=== PATIENT | female | born 1995 | race Caucasian/White ===

== ENCOUNTER 2020-10-14 05:32 | Outpatient (RCR) | payer BC ==
[~2020-10-14] VITALS: Ht 172.7 cm; Wt 62.7 kg
[~2020-10-14 05:32] MED LIST: PREN-102 PO
[2020-10-17] MEDS ORDERED: ACHD5005 PO (08:14)
[2020-10-17] MEDS ORDERED: IBUP-1773 PO (08:14)
[2020-10-17] MEDS ORDERED: DOCU-143 PO (08:14)
== END 2020-10-14 11:29 | disposition home or self-care (01) ==
LOC: PREOP 05:32
PROVIDERS: ATTEND Obstetrics & Gynecology
DX: Z01.812 Encounter for preprocedural laboratory examination (principal); N94.6 Dysmenorrhea, unspecified; N94.10 Unspecified dyspareunia; Z20.822 Contact with and (suspected) exposure to COVID-19
CPT/HCPCS: 87635

== ENCOUNTER 2020-10-17 06:14 | Day surgery (SDC) | payer BC ==
[~2020-10-17] VITALS: Ht 172.7 cm; Wt 62.7 kg
[2020-10-17] VITALS (13 sets, daily range): BP systolic 88–134; BP diastolic 57–99
[2020-10-17] MEDS: LACTATED RINGERS 1,000 ML IV PRN ×2 (06:52→08:21)
[2020-10-17] MEDS ORDERED: SEVOFLURANE (ULTANE) 15 ML INHAL SOLN ONE (06:54)
[2020-10-17] MEDS ORDERED: proPOfol 200 MG/20 ML (DIPRIVAN) VIAL IV ONE (06:54)
[2020-10-17] MEDS ORDERED: NEOSTIGMINE 3 MG/3 ML VIAL ONE (06:54)
[2020-10-17] MEDS ORDERED: LIDOCAINE PF 2% 5 ML (XYLOCAINE) VIAL ONE (06:54)
[2020-10-17] MEDS ORDERED: ROCURONIUM 10 MG/ML 5 ML SYRINGE IV ONE (06:54)
[2020-10-17] MEDS ORDERED: GLYCOPYRROLATE 0.2 MG/ML (ROBINUL) 2 ML VIAL ONE (06:54)
[2020-10-17] MEDS ORDERED: ONDANSETRON 4 MG/2 ML (SDV) Z0FRAN ONE (06:54)
[2020-10-17] MEDS ORDERED: MIDAZOLAM 2 MG/2 ML (VERSED) VIAL ONE (06:55)
[2020-10-17] MEDS ORDERED: fentaNYL INJECTION 100 MCG/2 ML AMP ONE (06:55)
[2020-10-17 06:57] LABS: BASOPHILS # (AUTO) 0.1 10^3/uL (0.0-0.1); BASOPHILS % (AUTO) 1 % (0-10); EOSINOPHILS # (AUTO) 0.2 10^3/uL (0.0-0.3); EOSINOPHILS % (AUTO) 2 % (0-10); HEMATOCRIT 42 % (35-52); LYMPHOCYTES # (AUTO) 3.3 10^3/uL (1.0-4.0); LYMPHOCYTES % (AUTO) 41 % (12-44); MEAN CORPUSCULAR HEMOGLOBIN 29 pg (25-34); MEAN CORPUSCULAR HGB CONC 33 g/dL (32-36); MEAN CORPUSCULAR VOLUME 88 fL (80-99); MEAN PLATELET VOLUME 10.6 fL (9.0-12.2); MONOCYTES # (AUTO) 0.7 10^3/uL (0.0-1.0); MONOCYTES % (AUTO) 9 % (0-12); NEUTROPHILS # (AUTO) 3.8 10^3/uL (1.8-7.8); NEUTROPHILS % (AUTO) 47 % (42-75); PLATELET COUNT 219 10^3/uL (130-400)
[2020-10-17] MEDS ORDERED: METHYLENE BLUE 0.5% (PROVAYBLUE) 50 mg/10 ml vial IV ONE (07:09)
[2020-10-17] MEDS ORDERED: BUPIVACAINE 0.25% 30 ML (SENSORCAINE) VIAL ONE (07:11)
[2020-10-17] MEDS ORDERED: ACHD5005 PO (08:14)
[2020-10-17] MEDS ORDERED: DOCU-143 PO (08:14)
[2020-10-17] MEDS ORDERED: IBUP-1773 PO (08:14)
--- NOTE | 2020-10-17 08:14 | Discharge Inst-Women's Service ---
Discharge Inst-Women's Serv Depart Medication/Instructions New, Converted or Re-Newed RX: RX on Chart Problems Reviewed?: Yes Consults/Follow Up Additional Follow Up: Yes Activity Activity: Activity as Tolerated Driving Instructions: No Driving for 1 Week NO SMOKING: NO SMOKING Nothing Inside Vagina: No Douching, No Beltrami, No Tampons Diet Discharge Diet: No Restrictions Symptoms to Report to : Bleeding Excessive, Pain Increased, Fever Over 101 Degrees F, Vaginal Bleeding Increase, Questions/Concerns For Any Problems or Questions: Contact Your Physician Skin/Wound Care Infection Signs and Symptoms: Increased Redness, Foul Odor of Wound, Increased Drainage, Skin Itchy or Has a Rash, Increased Swelling, Temperature Above 101 F Operative Area Clean and Dry: Keep Incision Clean/Dry Stitches/[place]/Dermabond: Dermabond TAY FARR DO Oct 17, 2020 08:14
[2020-10-17] MEDS ORDERED: ONDANSETRON 4 MG/2 ML (SDV) Z0FRAN IVP PRN ×2 (08:15→09:00)
[2020-10-17] MEDS ORDERED: HYDROcodone/APAP 5 MG/325 MG (LORTAB) TAB PO PRN (08:15)
[2020-10-17] MEDS ORDERED: D5 LR IV SOLUTION 1,000 ML IV SCH (08:15)
[2020-10-17] MEDS ORDERED: KETOROLAC 30 MG/ML VIAL IVP ONE (08:15)
[2020-10-17] MEDS ORDERED: morphine INJ 10 MG/ML 1ML (SYR OR VIAL) IVP ONE (09:00)
[2020-10-17] MEDS ORDERED: HYDROmorphone 2 MG/ML VIAL (DILAUDID) IV ONE (09:00)
--- NOTE | 2020-10-17 11:30 | Anesthesia-General Post-Op ---
General Patient Condition Mental Status/LOC: Same as Preop Cardiovascular: Satisfactory Nausea/Vomiting: Absent Respiratory: Satisfactory Pain: Controlled Complications: Absent Post Op Complications Complications None Follow Up Care/Instructions Patient Instructions None needed. Anesthesia/Patient Condition Patient Condition Patient was seen this morning after the procedure and she was doing well, no complaints, stable vital signs, no apparent adverse anesthesia problems. ELISABET ROE DO Oct 17, 2020 11:30
--- NOTE | 2020-10-17 14:43 | OPERATIVE REPORT ---
DATE OF SERVICE: PREOPERATIVE DIAGNOSES: 1. A 25-year-old female with chronic pelvic pain. 2. Dyspareunia. 3. Dysmenorrhea. POSTOPERATIVE DIAGNOSES: 1. A 25-year-old female with chronic pelvic pain. 2. Dyspareunia. 3. Dysmenorrhea. PROCEDURE: Operative laparoscopy with cauterization of endometriosis implants of the pelvic peritoneum as well as chromotubation. SURGEON: Tay Farr DO ANESTHESIA: General LMA. ESTIMATED BLOOD LOSS: Minimal. URINE OUTPUT: 400 mL clear at the end of the procedure. FLUIDS: 1500 mL lactated Ringer's solution. FINDINGS: A grossly normal appearing external female genitalia. Normal appearing cervix, normal appearing bilateral fallopian tubes with spillage of methylene blue dye from both distal ampullary portion of the fallopian tube, normal appearing vesicouterine peritoneum. There are endometriosis implants of the left uterosacral ligament and posterior cul-de-sac. SPECIMEN SENT: None. INDICATIONS FOR PROCEDURE: This 25-year-old female is a patient who had sought care in my office for concerns with pain with intercourse, pain with periods. She had also reported some infertility attempting to get for the past 2 years without any success despite timing ovulation. She reported her cycles are regular. I discussed with the patient performing diagnostic procedure due to the pain she was having. Risks of the procedure were discussed with the patient in detail including risk of bleeding, infection, damage to surrounding structures including, but not limited to bowel, bladder, ureter, kidneys, possible need for reoperation, recovery timeframe, risk from anesthesia and even . After everything was discussed with the patient in detail, consent was obtained in the preoperative area and the patient was taken to the operating room. OPERATIVE REPORT IN DETAIL: Once in the operating room, anesthesia was found to be adequate, placed in dorsal lithotomy position, prepped and draped in normal sterile fashion. Timeout was performed. A Fu catheter was placed using sterile technique. A weighted speculum was inserted in the patient's vagina. Right angle retractor was used to visualize the cervix, which was grasped at 12 o'clock position using a long Allis clamp. I then gently sound the uterine cavity, depth was found to be 8 cm. I placed a [employer] uterine manipulator to a depth of 8 cm and the uterus deploying the balloon. I removed all the instruments from the patient's vagina, performed change of gloves and took my attention to the abdomen where infraumbilically I infiltrated this area using 0.25% Marcaine to make a 5 mm incision with a knife and directed Veress needle through the incision, intraperitoneal placement was confirmed using saline drop test. An opening pressure of 5 mmHg was noted, proceeded to maximum pressure of 15 mmHg using CO2 gas for insufflation. I then removed the Veress needle and introduced a 5 mm blunt laparoscopic trocar. Once this was in place, I am able to confirm intraperitoneal placement using the laparoscope. There was no evidence of damage upon my entry site. A brief scan of the upper abdominal anatomy appears grossly normal. I then had the patient placed in steep Trendelenburg and I am able to visualize all my findings as described above. I need a second trocar in order to cauterize and addressed the endometriosis implants; therefore, a suprapubic trocar was placed in similar fashion. Once this trocar was in place, I used a hook cautery to cauterize and destroy the endometrial tissue that I am able to grossly see. After this was done, there was no active bleeding noted from either of these places. I copiously irrigated the pelvis using normal saline. Again, no active bleeding was noted. I then performed a chromotubation using methylene blue diluted in 1200 mL of normal saline. There was spillage from bilateral fallopian tubes without any resistance. After which, I copiously irrigate the methylene blue out of the pelvis as well. I then had the patient taken out of steep Trendelenburg where I removed the suprapubic trocar under direct visualization of the laparoscope and infraumbilical trocars left in place to release insufflation and to introduce 10 mL of 0.25% Marcaine into the peritoneal cavity for postoperative pain management. I then removed this trocar as well. The skin was reapproximated using Dermabond and the Kronner uterine manipulator and Fu catheter were removed at the end of procedure. The patient tolerated the procedure well and was taken to recovery area in stable condition. Lap and sponge counts were correct at the end of procedure. Instrument counts correct as well. Job ID: [id number] DocumentID: [id number] Dictated Date: 10/17/2020 09:47:59 Document Processing Specialist Date: 10/17/2020 14:43:23 Dictated By: TAY FARR DO
== END 2020-10-17 11:25 | disposition home or self-care (01) ==
LOC: SDC 06:14
PROVIDERS: ATTEND Obstetrics & Gynecology
DX: N94.6 Dysmenorrhea, unspecified (principal); N94.10 Unspecified dyspareunia; G89.29 Other chronic pain; N94.4 Primary dysmenorrhea; N94.12 Deep dyspareunia
CPT/HCPCS: 36415; 84703; 85025; 86850; 86900; 86901; 87081

== ENCOUNTER → 2021-04-20 | Outpatient (CLI) | payer BC ==
[~2021-04-20] MED LIST changes: +ACHD5005 PO; +DOCU-143 PO; +IBUP-1773 PO
--- NOTE | 2021-04-20 15:31 | Diagnostic Imaging Report ---
INDICATION: Encounter for supervision of normal 1st . TECHNIQUE: Multiple real-time grayscale images were obtained over the gravid uterus. COMPARISON: None FINDINGS: There is a single live fetus in a breech presentation. heart rate was recorded at 155 bpm. Placenta is anterior. Amniotic fluid volume is normal. survey shows the cervix to be 3.0 cm in size. Bilateral renal pelves are minimally prominent measuring 4-5 mm in dilatation. Bladder and stomach are unremarkable. brain is unremarkable. There is a four-chamber heart. There is a three-vessel cord with normal insertion. Spine is unremarkable. Biometrical measurements are as follows: Biparietal 4.40 cm, age 19 weeks 3 days. Head circumference 17.43 cm, age 20 weeks 0 days. Abdominal circumference 14.46 cm, age 19 weeks 6 days. Femur length 3.26 cm, age 20 weeks 2 days. Sonographic estimate age: 20 weeks 0 days. Sonographic estimated date of delivery: 09/07/2021. Estimated Weight: 322 gm (+/- 47 gm). LMP percentile: 27%. heart rate: 155 beats per minute. number: 1 of 1. IMPRESSION: Single live IUP 20 weeks 0 days gestational age. Estimated date of confinement sonographically is 09/07/2021. Dictated by: Dictated on workstation # [id number]
== END ==
LOC: RAD 11:32
PROVIDERS: ATTEND Nurse Practitioner Women's Health
DX: Z34.02 Encounter for supervision of normal first pregnancy, second trimester (principal); Z3A.20 20 weeks gestation of pregnancy
CPT/HCPCS: 76805

== ENCOUNTER 2021-08-13 08:59 | Emergency (ER) | payer BC ==
[~2021-08-13] VITALS: Ht 175 cm; Wt 71.0 kg
[2021-08-13] MEDS ORDERED: NS IV 1000 ML 1,000 ML IV SCH ×2 (09:15→10:45)
[2021-08-13 09:25] LABS: BASOPHILS % (AUTO) 0 % (0-10); EOSINOPHILS % (AUTO) 0 % (0-10); HEMATOCRIT 31 % (35-52); HEMOGLOBIN 9.8 g/dL (11.5-16.0); LYMPHOCYTES # (AUTO) 0.6 10^3/uL (1.0-4.0); LYMPHOCYTES % (AUTO) 7 % (12-44); MEAN CORPUSCULAR HEMOGLOBIN 27 pg (25-34); MEAN CORPUSCULAR HGB CONC 32 g/dL (32-36); MEAN CORPUSCULAR VOLUME 84 fL (80-99); MEAN PLATELET VOLUME 10.4 fL (9.0-12.2); MONOCYTES # (AUTO) 0.9 10^3/uL (0.0-1.0); MONOCYTES % (AUTO) 11 % (0-12); NEUTROPHILS # (AUTO) 6.8 10^3/uL (1.8-7.8); NEUTROPHILS % (AUTO) 82 % (42-75); PLATELET COUNT 169 10^3/uL (130-400); WHITE BLOOD COUNT 8.3 10^3/uL (4.3-11.0)
--- NOTE | 2021-08-13 09:26 | ED Cough/URI ---
General Chief Complaint: Cough/Cold/Flu Symptoms Stated Complaint: BODY ACHES,SORE THROAT,SUNG Source: patient Exam Limitations: no limitations History of Present Illness Date Seen by Provider: Aug 13, 2021 Time Seen by Provider: 09:13 Initial Comments Patient is a 26-year-old female who presents to the emergency department with a chief complaint of shortness of breath, cough, body aches, sore throat, "migraine" over the last 2 days. She is not Covid vaccinated. She reports that she was recently in contact with her mom who is also unvaccinated who lives with her stepdad who was diagnosed positive Covid last week. She states last contact with her mom was last Saturday or . She also has another friend who was recently diagnosed positive with Covid. Patient is 36 weeks , a patient of Dr. Jeong. She has a due date of September 05. She reports no abdominal cramping, vaginal bleeding or loss of fluids. She is feeling the baby move. No burning with urination, urgency or frequency. No diarrhea. No joint pains rashes or swelling. She did report a temp of 101 this morning and took 1 Tylenol at about 7:00. All other review of systems reviewed and negative except as stated. Timing/Duration: yesterday Severity/Quality: moderate, dry cough Prior Episodes/Possible Cause: illness exposure Associated Symptoms: cough, fever/chills, headache, muscle aches, shortness of breath, sore throat Allergies and Home Medications Allergies Coded Allergies: No Known Drug Allergies (Unverified , 10/17/20) Patient Home Medication List Home Medication List Reviewed: Yes Vits #93/Iron Fum/FA ( Formula Tablet) 1 Each Tablet, 1 EACH PO DAILY, (Reported) Entered as Reported by: DOMINIK PAULINO on 10/10/20 1311 Discontinued Medications Docusate Sodium (Colace) 100 Mg Capsule, 100 MG PO BID Discontinued Reason: No Longer Taking Prescribed by: TYA JEONG on 10/17/20813 Last Action: Discontinued Hydrocodone Bit/Acetaminophen (HYDROcodone/APAP 5 MG/325 MG TAB) 1 Tab Tab, 1-2 EA PO Q6HR PRN for PAIN-MODERATE (5-7) Discontinued Reason: No Longer Taking Prescribed by: TAY JEONG on 3/8/21 0814 Last Action: Discontinued Ibuprofen (Ibuprofen) 600 Mg Tablet, 600 MG PO Q6H Discontinued Reason: No Longer Taking Prescribed by: TAY JEONG on 10/17/20813 Last Action: Discontinued Review of Systems Review of Systems Constitutional: see HPI EENTM: throat pain Respiratory: cough, short of breath Cardiovascular: no symptoms reported Gastrointestinal: loss of appetite Genitourinary: decreased output : Yes Expected Date of Delivery: Sep 05, 2021 Musculoskeletal: muscle cramps Skin: no symptoms reported Psychiatric/Neurological: Headache All Other Systems Reviewed Negative Unless Noted: Yes Past Ogfqmrf-Vaxvny-Thfdsr Hx Seasonal Allergies Seasonal Allergies: No Past Medical History Surgeries: No Respiratory: No Currently Using CPAP: No Currently Using BIPAP: No Cardiac: No Neurological: No Genitourinary: No Gastrointestinal: No Musculoskeletal: No Endocrine: No HEENT: No Cancer: No Psychosocial: No Integumentary: No Blood Disorders: No Physical Exam Vital Signs - First Documented 08/13/21 09:05 Temp 36.6 Pulse 132 Resp 16 B/P (MAP) 107/77 (87) Pulse Ox 99 O2 Delivery Room Air Capillary Refill : Height: '" Weight: lbs. oz. kg; 21.02 BMI Method: General Appearance: WD/WN, no apparent distress Eyes: Bilateral Eye Normal Inspection, Bilateral Eye PERRL, Bilateral Eye EOMI HEENT: pharynx normal, other (Dry mucous membranes) Neck: non-tender, full range of motion, supple, normal inspection Respiratory: lungs clear, normal breath sounds, no respiratory distress, no accessory muscle use Cardiovascular: tachycardia (135), other (2+ radial pulses) Gastrointestinal: soft, other (Gravid uterus, fundus at the base of the sternum) Extremities: normal range of motion, non-tender, normal inspection, no pedal edema, no calf tenderness, normal capillary refill Neurologic/Psychiatric: no motor/sensory deficits, alert, normal mood/affect, oriented x 3 Skin: normal color, warm/dry Progress/Results/Core Measures Suspected Sepsis SIRS Temperature: Pulse: Respiratory Rate: Laboratory Tests 08/13/21 09:17: White Blood Count 8.3 Blood Pressure / Mean: Laboratory Tests 08/13/21 09:17: Creatinine 0.69, Platelet Count 169 Results/Orders Lab Results Laboratory Tests Test 08/13/21 09:14 08/13/21 09:17 Range/Units Influenza Type A Antigen NEGATIVE NEGATIVE Influenza Type B Antigen NEGATIVE NEGATIVE SARS-CoV-2 RNA (RT-PCR) Detected Negative White Blood Count 8.3 4.3-11.0 10^3/uL Red Blood Count 3.62 L 3.80-5.11 10^6/uL Hemoglobin 9.8 L 11.5-16.0 g/dL Hematocrit 31 L 35-52 % Mean Corpuscular Volume 84 80-99 fL Mean Corpuscular Hemoglobin 27 25-34 pg Mean Corpuscular Hemoglobin Concent 32 32-36 g/dL Red Cell Distribution Width 13.4 10.0-14.5 % Platelet Count 169 130-400 10^3/uL Mean Platelet Volume 10.4 9.0-12.2 fL Immature Granulocyte % (Auto) 1 % Neutrophils (%) (Auto) 82 H 42-75 % Lymphocytes (%) (Auto) 7 L 12-44 % Monocytes (%) (Auto) 11 0-12 % Eosinophils (%) (Auto) 0 0-10 % Basophils (%) (Auto) 0 0-10 % Neutrophils # (Auto) 6.8 1.8-7.8 10^3/uL Lymphocytes # (Auto) 0.6 L 1.0-4.0 10^3/uL Monocytes # (Auto) 0.9 0.0-1.0 10^3/uL Eosinophils # (Auto) 0.0 0.0-0.3 10^3/uL Basophils # (Auto) 0.0 0.0-0.1 10^3/uL Immature Granulocyte # (Auto) 0.1 0.0-0.1 10^3/uL Neutrophils % (Manual) 80 % Lymphocytes % (Manual) 5 % Monocytes % (Manual) 9 % Band Neutrophils 6 % Blood Morphology Comment NORMAL Sodium Level 135 135-145 MMOL/L Potassium Level 3.7 3.6-5.0 MMOL/L Chloride Level 102 98-107 MMOL/L Carbon Dioxide Level 18 L 21-32 MMOL/L Anion Gap 15 H 5-14 MMOL/L Blood Urea Nitrogen 6 L 7-18 MG/DL Creatinine 0.69 0.60-1.30 MG/DL Estimat Glomerular Filtration Rate 105 BUN/Creatinine Ratio 9 Glucose Level 109 H 70-105 MG/DL Calcium Level 9.5 8.5-10.1 MG/DL C-Reactive Protein High Sensitivity 1.12 H 0.00-0.50 MG/DL My Orders Orders - RIKA OLSON MDid 19 Inhouse Test (08/13/21 09:15) Influenza A & B Antigens (08/13/21 09:15) Isolation Central Supply Req (08/13/21 09:15) Ed Iv/Invasive Line Start (08/13/21 09:15) Heart Tones (08/13/21 09:15) Ns Iv 1000 Ml (Sodium Chloride 0.9%) (08/13/21 09:15) Cbc With Automated Diff (08/13/21 09:15) Basic Metabolic Panel (08/13/21 09:15) Hs C Reactive Protein (08/13/21 09:15) Manual Differential (08/13/21 09:17) Vital Signs/I&O 08/13/21 09:05 Temp 36.6 Pulse 132 Resp 16 B/P (MAP) 107/77 (87) Pulse Ox 99 O2 Delivery Room Air Capillary Refill : Progress Note #1: Time: 09:25 Progress Note Patient is afebrile here in the emergency department, no respiratory distress is demonstrated. Room air saturations are 99%. She is quite tachycardic in the 130s. She has dry mucous membranes. Will give her a liter of fluids. She is not nauseous. She has not persistently coughing and I do not hear anything in her lungs to suggest pneumonia. Will check some basic labs. Will check heart tones. Progress Note #2: Time: 09:46 Progress Note heart tones 160 Patient's Covid test is positive today Progress Note #3: Time: 10:20 Progress Note Patient has been hydrated with a liter of fluids. Heart rate is still to 126. WIll do a second liter of fluids. She is mildly dehydrated looking at her labs. I have encouraged lots of oral fluids. Tylenol for body aches. Robitussin for cough. Return precautions given. All questions are sought and answered. I also encouraged vaccination. Departure Impression Primary Impression: COVID-19 Additional Impression: 36 weeks gestation of Disposition: 01 HOME, SELF-CARE Condition: Stable Departure-Patient Inst. Decision time for Depature: 09:47 Referrals: TAY JEONG DO NO,LOCAL PHYSICIAN (PCP) Primary Care Physician Patient Instructions: COVID-19 ED Add. Discharge Instructions: You will need to drink lots of fluids to stay well-hydrated. Take [id number] extra strength Tylenol 2 tablets every 6 hours as needed for body aches, fever over 100.4. You can use [id number]-lwx-cjpvjeg Robitussin as needed for cough, follow package directions. You should get an oxygen monitor from the pharmacy. Periodically check your oxygen level. If it is starting to go down or you are having increasing shortness of breath and especially if your numbers are below 90% please come back to the emergency room for reevaluation. Please follow-up with Dr. Jeong tomorrow to advise him of your positive Covid test as they will need to know this for your weekly checks before you deliver. You should quarantine for 7 days. Mask and social distance from asymptomatic family members. Copy Copies To 1: TAY JEONG KATHRYN M MD Aug 13, 2021 09:26
[2021-08-13 09:53] LABS: BAND NEUTROPHILS 6 %; LYMPHOCYTES % (MANUAL) 5 %; MONOCYTES % (MANUAL) 9 %; NEUTROPHILS % (MANUAL) 80 %; RBC MORPH NORMAL
[2021-08-13 10:11] LABS: POTASSIUM 3.7 MMOL/L (3.6-5.0)
[2021-08-13 10:13] LABS: CALCIUM 9.5 MG/DL (8.5-10.1)
[2021-08-13 10:17] LABS: CREATININE SERUM 0.69 MG/DL (0.60-1.30)
[2021-08-13 11:22] VITALS: BP 106/62
== END 2021-08-13 11:22 | disposition home or self-care (01) ==
LOC: EDUNIT# 08:59 → ER 09:01
DX: O98.513 Other viral diseases complicating pregnancy, third trimester (principal); U07.1 COVID-19; R00.0 Tachycardia, unspecified; Z3A.36 36 weeks gestation of pregnancy
CPT/HCPCS: 36415; 80048; 85007; 85027; 86141; 87636; 87804

== ENCOUNTER 2021-09-06 04:08 | Inpatient (IN) | payer BC ==
[2021-09-06] VITALS (48 sets, daily range): BP systolic 105–133; BP diastolic 56–87
[~2021-09-06] VITALS: Ht 172.7 cm; Wt 73.6 kg
[2021-09-06] MEDS ORDERED: D5 LR IV SOLUTION 1,000 ML IV SCH (08:00)
[2021-09-06 08:06] LABS: BASOPHILS % (AUTO) 0 % (0-10); EOSINOPHILS # (AUTO) 0.1 10^3/uL (0.0-0.3); EOSINOPHILS % (AUTO) 1 % (0-10); HEMATOCRIT 32 % (35-52); HEMOGLOBIN 10.1 g/dL (11.5-16.0); LYMPHOCYTES # (AUTO) 2.2 10^3/uL (1.0-4.0); LYMPHOCYTES % (AUTO) 21 % (12-44); MEAN CORPUSCULAR HEMOGLOBIN 26 pg (25-34); MEAN CORPUSCULAR HGB CONC 32 g/dL (32-36); MEAN CORPUSCULAR VOLUME 82 fL (80-99); MEAN PLATELET VOLUME 11.8 fL (9.0-12.2); MONOCYTES # (AUTO) 0.9 10^3/uL (0.0-1.0); MONOCYTES % (AUTO) 8 % (0-12); NEUTROPHILS # (AUTO) 7.3 10^3/uL (1.8-7.8); NEUTROPHILS % (AUTO) 69 % (42-75); PLATELET COUNT 210 10^3/uL (130-400); WHITE BLOOD COUNT 10.6 10^3/uL (4.3-11.0)
[2021-09-06] MEDS ORDERED: OXYTOCIN PRE-MIX DRIP 500 ML IV ONE (08:13)
[2021-09-06] MEDS ORDERED: OXYTOCIN PRE-MIX DRIP 500 ML IV SCH ×2 (08:15→15:30)
--- NOTE | 2021-09-06 08:30 | History & Physical-OB ---
OB - Chief Complaint & HPI Date/Time Date of Admission: Date of Admission: Sep 06, 2021 at 06:53 Date seen by a Provider: Sep 06, 2021 Time Seen by a Provider: 08:15 Chief Complaint/History OB-Reason for Admission/Chief: Induction of Labor Hx : 1 Hx Para: 0 Expected Date of Delivery: Sep 05, 2021 Gestational Age in Weeks: 40 Gestational Age in Days: 1 Indication for induction: post dates Admission Nurse Assessment Rev: Yes History of Labs A pos Antibody neg RI RPR NR HBsAg NR HIV NR GC neg GBS neg Allergies and Home Medications Allergies Coded Allergies: No Known Drug Allergies (Unverified , 10/17/20) Patient Home Medication List Home Medication List Reviewed: Yes Vits #93/Iron Fum/FA ( Formula Tablet) 1 Each Tablet, 1 EACH PO DAILY, (Reported) Entered as Reported by: DOMINIK PAULINO on 10/10/20 1311 OB - History Hx of Present Care: Yes Ultrasounds: Normal mid trimester US Obstetrical Complications: None Medical Complications: None Patient Past Medical History n/a OB - Admission Exam Physical Exam HEENT: NCAT Heart: Rhythm Normal Lungs: Clear Abdomen: Gravid Extremities: Normal Reflexes: Normal Cervical Dilatation: 3cm Effacement: 75% Station: -1 Membranes: Intact Heart Rate: 130's Accelerations: Accelerations Present Decelerations: No Decelerations Short Term Variability: Present Alf Variability: Average (6-25) Contractions on Admission: < 5 Minutes Apart Intensity: Moderate Lou Scoring Tool (Modified) Dilation (cm): 3-4cm (2) Effacement (%): 51-79% (2) Descent/Station: -1,0 (2) Cervix Consistency: Soft (2) Cervix Position: Anterior (2) Subtract 1 point for: Nulliparity (-1) Lou Score: 8 Labs Laboratory Tests Test 09/06/21 07:25 Range/Units White Blood Count 10.6 4.3-11.0 10^3/uL Red Blood Count 3.83 3.80-5.11 10^6/uL Hemoglobin 10.1 L 11.5-16.0 g/dL Hematocrit 32 L 35-52 % Mean Corpuscular Volume 82 80-99 fL Mean Corpuscular Hemoglobin 26 25-34 pg Mean Corpuscular Hemoglobin Concent 32 32-36 g/dL Red Cell Distribution Width 14.4 10.0-14.5 % Platelet Count 210 130-400 10^3/uL Mean Platelet Volume 11.8 9.0-12.2 fL Immature Granulocyte % (Auto) 1 % Neutrophils (%) (Auto) 69 42-75 % Lymphocytes (%) (Auto) 21 12-44 % Monocytes (%) (Auto) 8 0-12 % Eosinophils (%) (Auto) 1 0-10 % Basophils (%) (Auto) 0 0-10 % Neutrophils # (Auto) 7.3 1.8-7.8 10^3/uL Lymphocytes # (Auto) 2.2 1.0-4.0 10^3/uL Monocytes # (Auto) 0.9 0.0-1.0 10^3/uL Eosinophils # (Auto) 0.1 0.0-0.3 10^3/uL Basophils # (Auto) 0.0 0.0-0.1 10^3/uL Immature Granulocyte # (Auto) 0.1 0.0-0.1 10^3/uL OB - Assessment/Plan/Diagnosis Assessment Assessment: induction of labor Admission Dx 26 yo @ 40.1 Postdates GBS neg Admission Status: Inpatient Order (span 2 midnights) Reason for Inpatient Admission: IOL at 40 weeks Plan Plan: Induction Induction Method: TAY SERRANO DO Sep 06, 2021 08:30
[2021-09-06] MEDS ORDERED: fentaNYL 2 mcg/ml BUPIVA 0.125 100 ML ONE (11:12)
[2021-09-06] MEDS ORDERED: LACTATED RINGERS 1,000 ML IV ONE ×2 (11:12→11:45)
[2021-09-06] MEDS ORDERED: fentaNYL INJ 100 MCG/2 ML AMP ONE (11:34)
[2021-09-06] MEDS ORDERED: BUPIVACAINE 0.25% 30 ML (SENSORCAINE) VIAL ONE (11:34)
[2021-09-06] MEDS ORDERED: ONDANSETRON 4 MG/2 ML (SDV) Z0FRAN IV PRN (11:45)
[2021-09-06] MEDS ORDERED: NALOXONE 0.4 MG/ML 1 ML (NARCAN) VIAL IV PRN ×2 (11:45→15:30)
[2021-09-06] MEDS ORDERED: diphenhydrAMINE 50 MG/ML INJ (BENADRYL) IV PRN (11:45)
[2021-09-06] MEDS ORDERED: fentaNYL 2 mcg/ml BUPIVA 0.125 100 ML IV SCH (11:45)
[2021-09-06] MEDS ORDERED: CATHETER FLUSH 10 ML SYR IV PRN (11:45)
[2021-09-06] MEDS ORDERED: CATHETER FLUSH 10 ML SYR IV SCH (14:00)
[2021-09-06] MEDS ORDERED: LIDOCAINE 1% INJ 20 ML VIAL ONE (14:31)
[2021-09-06] MEDS ORDERED: TETANUS,DIPTH,PERTUSS P/F (BOOSTRIX) 0.5 ML VIAL IM ONE (15:30)
[2021-09-06] MEDS ORDERED: HYDROcodone/APAP 5 MG/325 MG (LORTAB) TAB PO PRN (15:30)
[2021-09-06] MEDS ORDERED: DIBUCAINE 1% OINTMENT 30 GM TUBE TOP PRN (15:30)
[2021-09-06] MEDS ORDERED: BENZOCAINE/MENTHOL (DERMOPLAST) 56 ML CAN TP PRN (15:30)
[2021-09-06] MEDS ORDERED: MEASLES,MUMPS,RUBELLA 1 EA INJ SQ ONE (15:30)
[2021-09-06] MEDS ORDERED: WITCH HAZEL(TUCKS) 40 EA JAR TOP PRN (15:30)
--- NOTE | 2021-09-06 15:33 | OB Labor & Delivery Record ---
L&D History Date of Service Date of Service: Sep 06, 2021 History Expected Date of Delivery: Sep 05, 2021 Gestational Age in Weeks: 40 Hx : 1 Hx Para: 0 Complications Events: Routine care Operative Indications (Cesarea: N/A-Vaginal Delivery Intrapartal Events: None L&D Stage1 Stage One Onset of Labor - Date: Sep 06, 2021 Monitors and Tracing Monitor Mode: External Heart Rate: 130 Monitor Accelerations: Uniform Monitor Decelerations: Variable Short Term Variability: Present Presentation: Vertex Vital Signs VS - Last 72 Hours, by Label 09/06/21 09/06/21 09/06/21 09/06/21 07:14 08:45 09:00 09:15 Temp 36.8 Pulse 123 89 84 75 Resp 18 18 18 18 B/P (MAP) 114/74 (87) 112/76 (88) 111/76 (88) 111/76 (88) O2 Delivery Room Air Room Air Room Air Room Air 09/06/21 09/06/21 09/06/21 09/06/21 09:30 09:45 10:00 10:15 Temp 36.1 Pulse 78 71 78 82 Resp 18 18 18 18 B/P (MAP) 112/79 (90) 112/75 (87) 114/77 (89) 118/81 (93) O2 Delivery Room Air Room Air Room Air Room Air 09/06/21 09/06/21 10:30 10:45 Pulse 79 74 Resp 18 18 B/P (MAP) 119/80 (93) 124/77 (93) O2 Delivery Room Air Room Air Rupture of Membranes Spontaneous Ruture of Membrane: No Amniotic Membrane Rupture Time: 0808 Amniotic Membrane Fluid Desc.: Clear Vaginal Bleeding Description: Normal Show Induction/Anesthesia Epidural Cath Placement - Time: 1145 Progress/Notes Patient admitted for IOL postdate. AROM performed and pitocin augmentation started. She received an epidural and progressed to complete and +2 station L&D Stage2 Stage Two Stage II Date: Sep 06, 2021 Monitors and Tracing Monitor Mode: External Heart Rate: 95 Monitor Accelerations: Uniform Monitor Decelerations: Variable Feather Renovator Variability: Average (6-10) Position: Right Occiput Anterior Presentation: Vertex Signs of Distress by FHT Signs of Distress Patient began pushing and deep variables were present. She progressed the vertex to +3 station when bradycardia was recognized in the 90s, with variable decels to the 60s. Due to concerns for distress operative delivery was done to expedite delivery. Kiwi vaccuum cup placed over flexion point. Suction applied to 500 mmHg. RML was cut. With next push, infants head was extended over RML where suction was released and remainder of the infant was delivered without difficulty Cord Descript/Complications Cord Vessel Description: 3 Vessels Delivery Type Infant Delivery Method: Low Vacuum Extraction Anterior Shoulder: Left Episiotomy/Perineal Laceration Laceraction(s)/Extensions: Yes Episiotomy Description: Right Mediolateral Degree (describe repair) RML repaired in usual fashion Condition of Infant Delivery 1 minute Comment: 8 5 minute Comment: 9 Notes Live female delivered weight 7lbs 11 oz Condition of Condition of : Living Exam: No Observed Abnormalities Resuscitation Resuscitation: N/A - Spontaneous Resp L&D Stage3 Stage Three Stage III Date: Sep 06, 2021 Pictocin Pitocin Administration mu/min: 4 Pitocin ml/hr: 4 Pitocin Administration Comment: 1046 PITOCIN INCREASED. Placenta Delivery Placenta Delivery: Spontaneous Delivery Summary Summary Estimated blood loss (mL): 350 Attending at delivery: Tay Farr DO Condition of Delivery Examined: Cervix Examined, Uterus Explored Post Hemorrhage: No Condition of Mother stable Condition of Infant (s) stable TAY FARR DO Sep 06, 2021 3:33 pm
[2021-09-06] MEDS: IBUPROFEN 600 MG (MOTRIN) TAB PO SCH (18:12)
[2021-09-06] MEDS: CATHETER FLUSH 10 ML SYR IV SCH (21:00)
[2021-09-06] MEDS: DOCUSATE SODIUM 100 MG (COLACE) CAP PO SCH (21:03)
[2021-09-07 00:35] VITALS: BP 119/78
[2021-09-07] MEDS: IBUPROFEN 600 MG (MOTRIN) TAB PO SCH ×3 (00:35→12:43)
[2021-09-07 04:38] VITALS: BP 110/74
[2021-09-07 04:42] VITALS: BP 110/74
[2021-09-07] MEDS: CATHETER FLUSH 10 ML SYR IV SCH ×2 (05:28→07:58)
[2021-09-07 05:36] LABS: BASOPHILS % (AUTO) 0 % (0-10); EOSINOPHILS # (AUTO) 0.1 10^3/uL (0.0-0.3); EOSINOPHILS % (AUTO) 1 % (0-10); HEMATOCRIT 27 % (35-52); HEMOGLOBIN 8.5 g/dL (11.5-16.0); LYMPHOCYTES # (AUTO) 2.2 10^3/uL (1.0-4.0); LYMPHOCYTES % (AUTO) 17 % (12-44); MEAN CORPUSCULAR HEMOGLOBIN 27 pg (25-34); MEAN CORPUSCULAR HGB CONC 32 g/dL (32-36); MEAN CORPUSCULAR VOLUME 84 fL (80-99); MEAN PLATELET VOLUME 11.8 fL (9.0-12.2); MONOCYTES # (AUTO) 1.1 10^3/uL (0.0-1.0); MONOCYTES % (AUTO) 8 % (0-12); NEUTROPHILS # (AUTO) 9.3 10^3/uL (1.8-7.8); NEUTROPHILS % (AUTO) 73 % (42-75); PLATELET COUNT 177 10^3/uL (130-400); WHITE BLOOD COUNT 12.7 10^3/uL (4.3-11.0)
[2021-09-07] MEDS ORDERED: PRENATAL VITAMIN 1 EA TAB PO SCH (07:00)
[2021-09-07 07:56] VITALS: BP 115/69
[2021-09-07] MEDS: DOCUSATE SODIUM 100 MG (COLACE) CAP PO SCH (08:00)
--- NOTE | 2021-09-07 08:29 | Postpartum Progress Note ---
Note Note Day # 1 Subjective: Patient is without complaints. Ambulating, voiding. Tolerating a regular diet without nausea or vomiting. Normal lochia. Pain is well controlled with oral pain medications. Objective: Physical Exam: General - Alert and oriented, no apparent distress Abdomen - Soft, appropriately tender to palpation, non-distended, fundus firm at umbilicus Extremities - no edema, negative Gigi's bilaterally Assessment: PPD 1 VAVD Acute blood loss anemia Plan: Routine care. Encourage breast feeding. Encourage ambulation. Ferrous sulfate supplementation. Plan for discharge today Vitals - Labs Vital Signs - I&O Vital Signs Date Time Temp Pulse Resp B/P (MAP) Pulse Ox O2 Delivery O2 Flow Rate FiO2 09/07/21 07:56 36.5 75 18 115/69 (84) 99 Room Air 09/07/21 04:42 36.6 67 18 110/74 (86) 98 Room Air 09/07/21 04:38 36.6 67 18 110/74 (86) 98 Room Air 09/07/21 00:35 36.7 68 16 119/78 (92) 97 Room Air 09/06/21 21:00 36.7 92 16 105/69 (81) 98 Room Air 09/06/21 17:41 108 18 112/75 (87) Room Air 09/06/21 17:26 95 18 110/74 (86) Room Air 09/06/21 17:11 90 18 111/73 (86) Room Air 09/06/21 16:56 91 18 117/81 (93) Room Air 09/06/21 16:41 86 18 115/75 (88) Room Air 09/06/21 16:26 87 18 118/69 (85) Room Air 09/06/21 16:11 36.4 76 18 117/72 (87) Room Air 09/06/21 15:56 70 18 117/69 (85) Room Air 09/06/21 15:41 36.5 75 18 129/75 (93) Room Air 09/06/21 15:26 36.6 72 18 109/66 (80) Room Air 09/06/21 15:11 36.5 83 18 121/62 (81) Room Air 09/06/21 14:43 87 18 122/80 (94) 100 Room Air 09/06/21 14:34 36.5 09/06/21 14:27 76 18 118/79 (92) 100 Room Air 09/06/21 14:11 86 18 113/77 (89) 100 Room Air 09/06/21 14:03 36.7 09/06/21 13:57 74 18 112/72 (85) 100 Room Air 09/06/21 13:43 80 18 117/74 (88) 100 Room Air 09/06/21 13:27 82 18 115/76 (89) 100 Room Air 09/06/21 13:12 76 18 116/77 (90) 98 Room Air 09/06/21 12:55 72 18 113/75 (88) 99 Room Air 09/06/21 12:42 72 18 113/70 (84) 99 Room Air 09/06/21 12:25 84 18 118/68 (85) 97 Room Air 09/06/21 12:21 73 18 133/67 (89) 82 Room Air 09/06/21 12:18 82 18 105/73 (84) 99 Room Air 09/06/21 12:15 76 18 113/63 (80) 97 Room Air 09/06/21 12:12 77 18 121/78 (92) Room Air 09/06/21 12:09 90 18 118/70 (86) 96 Room Air 09/06/21 12:06 75 18 118/72 (87) 97 Room Air 09/06/21 12:03 68 18 114/63 (80) 97 Room Air 09/06/21 12:00 73 18 114/60 (78) 97 Room Air 09/06/21 11:57 71 18 118/56 (76) Room Air 09/06/21 11:54 78 18 124/57 (79) 100 Room Air 09/06/21 11:50 76 18 116/66 (83) 100 Room Air 09/06/21 11:44 91 18 125/81 (96) 100 Room Air 09/06/21 11:40 83 18 121/75 (90) 99 Room Air 09/06/21 11:30 86 18 120/73 (89) Room Air 09/06/21 11:15 92 18 124/87 (99) Room Air 09/06/21 11:00 77 18 121/82 (95) Room Air 09/06/21 10:45 74 18 124/77 (93) Room Air 09/06/21 10:30 79 18 119/80 (93) Room Air 09/06/21 10:15 82 18 118/81 (93) Room Air 09/06/21 10:00 78 18 114/77 (89) Room Air 09/06/21 09:45 36.1 71 18 112/75 (87) Room Air 09/06/21 09:30 78 18 112/79 (90) Room Air 09/06/21 09:15 75 18 111/76 (88) Room Air 09/06/21 09:00 84 18 111/76 (88) Room Air 09/06/21 08:45 89 18 112/76 (88) Room Air I & O 09/07/21 07:00 Intake Total 4200 ml Balance 4200 ml Labs Laboratory Tests 09/07/21 05:14: White Blood Count 12.7H, Red Blood Count 3.21L, Hemoglobin 8.5L, Hematocrit 27L, Mean Corpuscular Volume 84, Mean Corpuscular Hemoglobin 27, Mean Corpuscular Hemoglobin Concent 32, Red Cell Distribution Width 14.5, Platelet Count 177, Mean Platelet Volume 11.8, Immature Granulocyte % (Auto) 1, Neutrophils (%) (Auto) 73, Lymphocytes (%) (Auto) 17, Monocytes (%) (Auto) 8, Eosinophils (%) (Auto) 1, Basophils (%) (Auto) 0, Neutrophils # (Auto) 9.3H, Lymphocytes # (Auto) 2.2, Monocytes # (Auto) 1.1H, Eosinophils # (Auto) 0.1, Basophils # (Auto) 0.0, Immature Granulocyte # (Auto) 0.1 TAY FARR DO Sep 07, 2021 08:29
--- NOTE | 2021-09-07 08:30 | Discharge Inst-Women's Service ---
Discharge Inst-Women's Serv Depart Medication/Instructions New, Converted or Re-Newed RX: Transmitted to Pharmacy Final Diagnosis PPD 1 VAVD Problems Reviewed?: Yes Consults/Follow Up Additional Follow Up: Yes Orders/Referrals Dr. Farr in 6 weeks Activity Activity: Activity as Tolerated Driving Instructions: No Driving for 1 Week NO SMOKING: NO SMOKING Nothing Inside Vagina: No Douching, No [place], No Tampons Diet Discharge Diet: No Restrictions Symptoms to Report to : Bleeding Excessive, Pain Increased, Fever Over 101 Degrees F, Vaginal Bleeding Increase, Questions/Concerns For Any Problems or Questions: Contact Your Physician TAY FARR DO Sep 07, 2021 08:30
[2021-09-07] MEDS ORDERED: ACHD5005 PO (08:31)
[2021-09-07] MEDS ORDERED: IBUP-844 PO (08:31)
[2021-09-07] MEDS ORDERED: DOCU100C37 PO (08:31)
[2021-09-07] MEDS ORDERED: FERROUS SULF 325 MG (IRON) TAB PO SCH (09:00)
[2021-09-07 12:43] VITALS: BP 114/63
[2021-09-07 15:23] VITALS: BP 112/71
--- NOTE | 2021-09-08 15:11 | Anesthesia-Regional Post-Op ---
Regional Patient Condition Mental Status: Alert, Oriented x3 Circulation: Same as Pre-Op Headache: Absent Sensation: Full Recovery Motor Block: Absent Post Op Complications Complications None Follow Up Care/Instructions Patient Instructions None needed. Anesthesia/Patient Condition I just called Grace and she is doing well, no complaints, stable vital signs, no apparent adverse anesthesia problems. ELISABET ROE DO Sep 08, 2021 15:11
== END 2021-09-07 17:10 | disposition home or self-care (01) | DRG 806 ==
LOC: LDRP 06:53
PROVIDERS: ADMIT Obstetrics & Gynecology; ATTEND Obstetrics & Gynecology
PROC: 10D07Z6 Extraction of Products of Conception, Vacuum, Via Natural or Artificial Opening (ICD-10-PCS; principal; 2021-09-06)
PROC: 0W8NXZZ Division of Female Perineum, External Approach (ICD-10-PCS; 2021-09-06)
PROC: 10907ZC Drainage of Amniotic Fluid, Therapeutic from Products of Conception, Via Natural or Artificial Opening (ICD-10-PCS; 2021-09-06)
DX: O48.0 Post-term pregnancy (principal); D62 Acute posthemorrhagic anemia; Z37.0 Single live birth; O76 Abnormality in fetal heart rate and rhythm complicating labor and delivery; Z3A.40 40 weeks gestation of pregnancy; O90.81 Anemia of the puerperium
CPT/HCPCS: 36415; 85025; 86850; 86900; 86901

== ENCOUNTER → 2022-07-02 | Outpatient (CLI) | payer BC ==
[~2022-07-02] MED LIST changes: +DOCU100C37 PO; +IBUP-844 PO
--- NOTE | 2022-07-02 14:56 | Diagnostic Imaging Report ---
PROCEDURE: US OB SINGLE FETUS <14 WKS. TECHNIQUE: Multiple real-time grayscale images were obtained over the gravid uterus in various projections. INDICATION: 1st trimester bleeding. CORRELATION STUDY: None FINDINGS: Uterus 10.7 x 6.5 x 3.0 cm. Intrauterine fluid collection compatible with gestational sac is noted. Gestational sac configuration unremarkable. Yolk sac present. The crown-rump length measures 8 weeks 0 days. cardiac activity 176 bpm. No abnormal leonie-gestational hemorrhage. Right ovary 2.6 x 1.6 x 1.7 cm and unremarkable. Left ovary not visualized. No abnormal adnexal mass. IMPRESSION: 1. Early intrauterine , 8 weeks 0 days for an estimated date of delivery 02/08/2023. Dictated by: Dictated on workstation # [id number]
== END ==
LOC: RAD 13:17
PROVIDERS: ATTEND Obstetrics & Gynecology
DX: O46.91 Antepartum hemorrhage, unspecified, first trimester (principal); Z3A.08 8 weeks gestation of pregnancy
CPT/HCPCS: 76801

== ENCOUNTER → 2022-09-28 | Outpatient (CLI) | payer BC ==
--- NOTE | 2022-09-28 17:10 | Diagnostic Imaging Report ---
INDICATION: anatomy survey TECHNIQUE: Multiple real-time grayscale images were obtained over the gravid uterus. COMPARISON: None FINDINGS: The cervix measures 3.9 cm in length. Placenta is posterior position and has its tip 2.3 cm from the internal cervical os. Fetus is in transverse lie. KURT is normal at 10.5 cm. Maternal adnexa are not well evaluated due to advanced gestational age. The following anatomy is visualized and normal: Stomach, urinary bladder, three-vessel cord, cerebral ventricles, cerebellum, cisterna magna, diaphragm, right ventricular outflow tract, umbilical cord insertion, spine, four-chamber heart, left ventricular outflow tract. Biometrical measurements are as follows: Biparietal 4.30 cm, age 19 weeks 1 days. Head circumference 17.57 cm, age 20 weeks 1 days. Abdominal circumference 14.64 cm, age 20 weeks 0 days. Femur length 3.27 cm, age 20 weeks 2 days. Sonographic estimate age: 20 weeks 0 days. Sonographic estimated date of delivery: 02/15/2023. Estimated Weight: 328 gm (+/- 48 gm). LMP percentile: 8%. heart rate: 147 beats per minute. number: 1 of 1. IMPRESSION: 1. Single live intrauterine has normal anatomy survey. 2. The inferior margin of the placenta is 2.3 cm from the internal cervical os. This does not meet criteria for low lying placenta. Dictated by: Dictated on workstation # [id number]
== END ==
LOC: RAD 12:31
PROVIDERS: ATTEND Nurse Practitioner Women's Health
DX: Z34.02 Encounter for supervision of normal first pregnancy, second trimester (principal); Z3A.20 20 weeks gestation of pregnancy
CPT/HCPCS: 76805

== ENCOUNTER 2023-01-28 14:09 | Inpatient (IN) | payer BC ==
[~2023-01-28] VITALS: Ht 172.7 cm; Wt 76.8 kg
[2023-01-28] VITALS (37 sets, daily range): BP systolic 98–126; BP diastolic 60–88
--- NOTE | 2023-01-28 15:37 | OB Triage Report ---
Standard Progress Note Progress Notes/Assess & Plan Date Seen by a Provider: Jan 28, 2023 Time Seen by a Provider: 14:35 Expected Date of Delivery: Feb 08, 2023 Gestational Age in Weeks: 38 Gestational Age in Days: 3 LMP/DEV Comment: IUP @ 38w3d Presents to L&D with c/o CTXs Denies LOF VB FHR 130 Reactive CVX 4/70/-2 TOCOs Q 3-4min Pt has made cervical change (5cm) Diagnosis/Problems Diagnosis/Problems (1) 38 weeks gestation of Assessment & Plan: IUP@ 38w 3d (2) Uterine contractions Assessment & Plan: Admit for labor NINA VASQUES DO Jan 28, 2023 15:37
--- NOTE | 2023-01-28 17:34 | History & Physical-OB ---
OB - Chief Complaint & HPI Date/Time Date of Admission: Date of Admission: Date seen by a Provider: Jan 28, 2023 Time Seen by a Provider: 22:50 Chief Complaint/History OB-Reason for Admission/Chief: Onset of Labor Hx : 2 Hx Para: 1 Expected Date of Delivery: Feb 08, 2023 Gestational Age in Weeks: 38 Gestational Age in Days: 3 Allergies and Home Medications Allergies Coded Allergies: No Known Drug Allergies (Unverified , 10/17/20) Patient Home Medication List Home Medication List Reviewed: Yes Docusate Sodium (Docusate Sodium) 100 Mg Capsule, 100 MG PO BID PRN for CONSTIPATION-1ST LINE Prescribed by: TAY FARR on 09/07/21830 Last Action: Reviewed Hydrocodone Bit/Acetaminophen (HYDROcodone/APAP 5 MG/325 MG TAB) 1 Tab Tab, 1 EA PO Q4H PRN for PAIN-MODERATE (5-7) Prescribed by: TAY FARR on 09/07/21830 Last Action: Reviewed Ibuprofen (Ibu) 600 Mg Tablet, 600 MG PO Q6H Prescribed by: TAY FARR on 09/07/21830 Last Action: Reviewed OB - History Hx of Present Care: Yes Ultrasounds: Normal mid trimester US Obstetrical Complications: None Medical Complications: None Information Induced Hypertension: No Maternal Gestational Diabetes: No Hemorrhage: No Obstetrical History Hx : 2 Hx Para: 1 Hx Termination: No Hx Multiple Gestation: No Hx Ectopic : No Hx Stillbirth: No Hx Complication: No Hx Induced Hypertens: No Hx Maternal Gestational Diabet: No Hx Hemorrhage: No Patient Past Medical History n/a Social History/Family History Alcohol Use: Denies Use Recreational Drug Use: No Immunizations Influenza Vaccine Up-to-Date: Yes; Up-to-Date OB - Admission Exam Physical Exam Vitals: Vital Signs 01/28/23 14:23 Temp 37.0 Pulse 95 Resp 18 B/P (MAP) 117/74 Pulse Ox 98 O2 Delivery Room Air HEENT: EOMI Heart: Rhythm Normal Lungs: Clear Abdomen: Gravid Extremities: Normal Cervical Dilatation: 7cm Effacement: Other (90%) Station: -1 Membranes: Ruptured (AROM @ 2255 large amount clear fluid) Heart Rate: 120's Accelerations: Accelerations Present Decelerations: No Decelerations Short Term Variability: Present Forming Acid Dumper Variability: Average (6-25) Contractions on Admission: < 5 Minutes Apart Intensity: Moderate OB - Assessment/Plan/Diagnosis Assessment Assessment: active labor Admission Dx IUP @ 38w3d Active labor Admission Status: Inpatient Order (span 2 midnights) Reason for Inpatient Admission: Active labor Plan Plan: Expectant Management Problems: (1) 38 weeks gestation of Assessment & Plan: IUP@ 38w 3d Admit for labor (2) Uterine contractions Copy Copies To 1: TAY FARR VICTORIA A DO Jan 28, 2023 17:34
[2023-01-28] MEDS: D5 LR IV SOLUTION 1,000 ML IV SCH ×2 (18:05→23:50)
[2023-01-28 18:19] LABS: BASOPHILS % (AUTO) 0 % (0-10); EOSINOPHILS # (AUTO) 0.1 10^3/uL (0.0-0.3); EOSINOPHILS % (AUTO) 0 % (0-10); HEMATOCRIT 31 % (35-52); LYMPHOCYTES # (AUTO) 2.5 10^3/uL (1.0-4.0); LYMPHOCYTES % (AUTO) 21 % (12-44); MEAN CORPUSCULAR HEMOGLOBIN 25 pg (25-34); MEAN CORPUSCULAR HGB CONC 32 g/dL (32-36); MEAN CORPUSCULAR VOLUME 77 fL (80-99); MEAN PLATELET VOLUME 11.2 fL (9.0-12.2); MONOCYTES # (AUTO) 1.1 10^3/uL (0.0-1.0); MONOCYTES % (AUTO) 9 % (0-12); NEUTROPHILS # (AUTO) 8.1 10^3/uL (1.8-7.8); NEUTROPHILS % (AUTO) 69 % (42-75); PLATELET COUNT 194 10^3/uL (130-400); WHITE BLOOD COUNT 11.8 10^3/uL (4.3-11.0)
[2023-01-28] MEDS ORDERED: fentaNYL 2 mcg/ml BUPIVA 0.125 100 ML ONE (19:42)
[2023-01-28] MEDS ORDERED: BUPIVACAINE 0.25% 10 ML (SENSORCAINE) VIAL ONE (19:50)
[2023-01-28] MEDS ORDERED: fentaNYL INJ 100 MCG/2 ML AMP ONE (19:50)
[2023-01-28] MEDS ORDERED: CATHETER FLUSH 10 ML SYR IV PRN ×2 (20:15→21:00)
[2023-01-28] MEDS ORDERED: NALOXONE 0.4 MG/ML 1 ML (NARCAN) VIAL IV PRN ×2 (20:15→21:00)
[2023-01-28] MEDS ORDERED: fentaNYL 2 mcg/ml BUPIVA 0.125 100 ML EPI SCH (20:15)
[2023-01-28] MEDS ORDERED: LACTATED RINGERS 1,000 ML IV ONE (20:15)
[2023-01-28] MEDS ORDERED: ONDANSETRON 4 MG/2 ML (SDV) Z0FRAN ONE (20:48)
[2023-01-28] MEDS ORDERED: ONDANSETRON 4 MG/2 ML (SDV) Z0FRAN IV PRN (21:00)
[2023-01-28] MEDS ORDERED: diphenhydrAMINE 50 MG/ML INJ (BENADRYL) IV PRN (21:00)
[2023-01-28] MEDS ORDERED: NALOXONE 0.4 MG/ML 1 ML (NARCAN) VIAL IM PRN (21:00)
[2023-01-28] MEDS ORDERED: CATHETER FLUSH 10 ML SYR IV SCH (22:00)
[2023-01-28] MEDS ORDERED: OXYTOCIN PRE-MIX DRIP 500 ML IV ONE (23:17)
[2023-01-29] VITALS (20 sets, daily range): BP systolic 100–136; BP diastolic 50–77
[2023-01-29] MEDS ORDERED: MEASLES,MUMPS,RUBELLA 1 EA INJ SQ ONE (01:45)
[2023-01-29] MEDS ORDERED: DIBUCAINE 1% OINTMENT 28 GM TUBE TOP PRN (01:45)
[2023-01-29] MEDS ORDERED: D5 LR IV SOLUTION 1,000 ML IV ONE (01:45)
[2023-01-29] MEDS ORDERED: NALOXONE 0.4 MG/ML 1 ML (NARCAN) VIAL IV PRN ×2 (01:45→02:00)
[2023-01-29] MEDS ORDERED: BENZOCAINE/MENTHOL (DERMOPLAST) 56 ML CAN TP PRN (01:45)
[2023-01-29] MEDS ORDERED: WITCH HAZEL(TUCKS) 40 EA JAR TOP PRN (01:45)
[2023-01-29] MEDS ORDERED: TETANUS,DIPTH,PERTUSS P/F (BOOSTRIX) 0.5 ML VIAL IM ONE (01:45)
[2023-01-29] MEDS ORDERED: OXYTOCIN PRE-MIX DRIP 500 ML IV SCH (01:45)
--- NOTE | 2023-01-29 01:48 | OB Labor & Delivery Record ---
Vag Delivery Note Vag Delivery Note Date of Delivery: 01/29/23 Preoperative Diagnosis: Grace Quinones is a (27 /Para 2 / 1,Gestational Age (wks)38with [ ] Postoperative Diagnosis: Same Surgeon: NINA VASQUES Desolderer: [] Anesthesia: Epidural Delivery Type: Spontaneous vaginal delivery Findings: [] Liveborn female infant, apgars 8/9 weight Pending Lacerations: First-degree perineal Intact placenta with 3 vessel cord. No nuchal cord, body cord or shoulder dystocia Estimated Blood Loss:200 ml Complications: None Condition: Stable Description of Procedure: The patient is a 27 year old female who presented at 38 weeks 3 days EGA. She was admitted and informed consent was obtained. Her labor course was noneventful. At 6 to 7 cm AROM occurred with a copious amount of clear fluid. She continued to progress complete dilatation and began to push. She was then set up for delivery. She pushed for approximately 10 minutes.The infant's head was delivered atraumatically in the VAUGHN position. The Anterior shoulder (right) delivered followed by the posterior shoulder and remainder of the 's body without difficulty. Upon delivery, the was vigorous and placed on maternal chest and the mouth and nares were bulb suctioned. After a 60 second delay, the cord was doubly clamped and cut and the remained on maternal chest. An intact placenta with 3-vessel cord delivered spontaneously and intact and there was found to be minimal bleeding.~ Vigorous fundal massage was performed and the fundus was found to be firm. IV oxytocin was given. Examination of the vagina and perineum revealed a First-degree perineal laceration repaired in the usual fashion with 3-0 vicryl rapide suture. Following the repair, sponge, instrument and needle counts were correct X2. Mom and baby were both in stable condition in the labor suite. Vitals - Labs Vital Signs - I&O Vital Signs Date Time Temp Pulse Resp B/P (MAP) Pulse Ox O2 Delivery O2 Flow Rate FiO2 01/29/23 00:38 117/75 (89) 01/29/23 00:25 77 114/73 (87) 01/29/23 00:08 76 112/68 (83) 01/28/23 23:54 75 115/69 (84) 98 Room Air 01/28/23 23:40 36.9 84 18 110/71 (84) 99 Room Air 01/28/23 23:30 78 99 Room Air 01/28/23 23:24 67 98/62 (74) 01/28/23 23:10 75 107/62 (77) 01/28/23 22:53 73 110/74 (86) 01/28/23 22:40 83 106/70 (82) 01/28/23 22:23 77 112/74 (87) Room Air 01/28/23 22:10 74 18 102/70 (81) Room Air 01/28/23 21:54 78 106/65 (79) Room Air 01/28/23 21:37 79 106/67 (80) 100 Room Air 01/28/23 21:23 72 108/69 (82) 98 Room Air 01/28/23 21:08 85 100/63 (75) 99 Room Air 01/28/23 20:55 90 111/68 (82) 98 Room Air 01/28/23 20:52 73 112/78 (89) 01/28/23 20:50 71 110/74 (86) 97 Room Air 01/28/23 20:48 89 111/64 (80) 96 Room Air 01/28/23 20:45 99 118/74 (89) Room Air 01/28/23 20:40 91 116/68 (84) 97 Room Air 01/28/23 20:35 99 118/70 (86) Room Air 01/28/23 20:29 86 122/71 (88) Room Air 01/28/23 20:26 87 121/72 (88) 97 Room Air 01/28/23 20:23 104 117/69 (85) 01/28/23 20:20 97 111/65 (80) 97 Room Air 01/28/23 20:18 92 116/68 (84) 96 Room Air 01/28/23 20:15 81 115/60 (78) 01/28/23 20:12 89 120/75 (90) 97 Room Air 01/28/23 20:08 85 18 122/67 (85) Room Air 01/28/23 20:05 105 122/83 (96) 97 Room Air 01/28/23 20:02 85 117/82 (94) 98 Room Air 01/28/23 19:59 79 115/82 (93) 01/28/23 19:56 84 126/88 (101) 100 Room Air 01/28/23 19:51 37.0 87 18 116/66 (83) 100 Room Air 01/28/23 19:22 86 20 111/68 (82) Room Air 01/28/23 18:50 83 18 118/70 (86) Room Air 01/28/23 18:28 37.0 95 18 98 Room Air 01/28/23 18:20 87 18 121/75 (90) Room Air 01/28/23 14:23 37.0 95 18 117/74 98 Room Air I & O 01/29/23 07:00 Intake Total 1950 ml Balance 1950 ml Labs Laboratory Tests 01/28/23 17:57: White Blood Count 11.8H, Red Blood Count 4.08, Hemoglobin 10.0L, Hematocrit 31L, Mean Corpuscular Volume 77L, Mean Corpuscular Hemoglobin 25, Mean Corpuscular Hemoglobin Concent 32, Red Cell Distribution Width 14.6H, Platelet Count 194, Mean Platelet Volume 11.2, Immature Granulocyte % (Auto) 1, Neutrophils (%) (Auto) 69, Lymphocytes (%) (Auto) 21, Monocytes (%) (Auto) 9, Eosinophils (%) (Auto) 0, Basophils (%) (Auto) 0, Neutrophils # (Auto) 8.1H, Lymphocytes # (Auto) 2.5, Monocytes # (Auto) 1.1H, Eosinophils # (Auto) 0.1, Basophils # (Au to) 0.0, Immature Granulocyte # (Auto) 0.1, Syphilis Total Antibody Negative NINA VASQUES 20, 2023 01:48
[2023-01-29] MEDS ORDERED: PNV1TABL67 PO (01:52)
[2023-01-29] MEDS ORDERED: FERR325T24 PO (01:52)
[2023-01-29] MEDS ORDERED: IBUP-1780 PO (01:52)
[2023-01-29] MEDS ORDERED: BENZ78AE5 TP (01:52)
[2023-01-29] MEDS ORDERED: WTCHGPD TOP (01:52)
[2023-01-29] MEDS ORDERED: OXYTOCIN PRE-MIX DRIP 500 ML IV ONE ×2 (01:55→02:00)
[2023-01-29] MEDS: IBUPROFEN 800 MG (MOTRIN) TAB PO SCH ×3 (03:27→21:14)
[2023-01-29] MEDS: ACETAMINOPHEN 500 MG TAB (TYLENOL) PO SCH ×4 (03:27→22:59)
[2023-01-29] MEDS ORDERED: CATHETER FLUSH 10 ML SYR IV SCH (06:00)
[2023-01-29] MEDS: FERROUS SULF 325 MG (IRON) TAB PO SCH (09:09)
[2023-01-29] MEDS: PRENATAL VITAMIN 1 EA TAB PO SCH (09:10)
[2023-01-29] MEDS: DOCUSATE SODIUM 100 MG (COLACE) CAP PO SCH ×2 (09:10→21:13)
--- NOTE | 2023-01-29 14:33 | Anesthesia-Regional Post-Op ---
Regional Patient Condition Mental Status: Alert, Oriented x3 Circulation: Same as Pre-Op Headache: Absent Sensation: Full Recovery Motor Block: Absent Post Op Complications Complications None Follow Up Care/Instructions Patient Instructions None needed. Anesthesia/Patient Condition Patient is doing well, no complaints, stable vital signs, no apparent adverse anesthesia problems. No complications reported per nursing. ELISABET ROE DO Jan 29, 2023 14:33
[2023-01-30 01:20] VITALS: BP 123/68
[2023-01-30] MEDS ORDERED: ACETAMINOPHEN 500 MG TAB (TYLENOL) PO SCH (05:00)
[2023-01-30] MEDS ORDERED: IBUPROFEN 800 MG (MOTRIN) TAB PO SCH (05:00)
[2023-01-30 06:00] LABS: BASOPHILS % (AUTO) 0 % (0-10); EOSINOPHILS # (AUTO) 0.1 10^3/uL (0.0-0.3); EOSINOPHILS % (AUTO) 1 % (0-10); HEMATOCRIT 34 % (35-52); HEMOGLOBIN 10.8 g/dL (11.5-16.0); LYMPHOCYTES % (AUTO) 9 % (12-44); MEAN CORPUSCULAR HEMOGLOBIN 25 pg (25-34); MEAN CORPUSCULAR HGB CONC 32 g/dL (32-36); MEAN CORPUSCULAR VOLUME 78 fL (80-99); MEAN PLATELET VOLUME 11.6 fL (9.0-12.2); MONOCYTES # (AUTO) 1.1 10^3/uL (0.0-1.0); MONOCYTES % (AUTO) 9 % (0-12); NEUTROPHILS # (AUTO) 9.4 10^3/uL (1.8-7.8); NEUTROPHILS % (AUTO) 81 % (42-75); PLATELET COUNT 171 10^3/uL (130-400); WHITE BLOOD COUNT 11.7 10^3/uL (4.3-11.0)
[2023-01-30 07:35] VITALS: BP 105/67
[2023-01-30] MEDS ORDERED: ONDA4TAB11 SL (08:30)
--- NOTE | 2023-01-30 08:30 | Postpartum Progress Note ---
Note Note Day # 1 Subjective: Patient is without complaints. Ambulating, voiding. Tolerating a regular diet both she and partner have had nausea vomiting and diarrhea Normal lochia. Pain is well controlled with oral pain medications.. [] Objective: [] Physical Exam: General - Alert and oriented, no apparent distress Breasts symmetrical no erythema engorgement Abdomen - Soft, appropriately tender to palpation, non-distended, fundus firm at umbilicus lochia minimal Extremities - no edema, negative Gigi's bilaterally Assessment: [] post- day #1, status post [] vaginal delivery. Recovering well, hemodynamically stable Plan: Routine care. Encourage breast feeding. Encourage ambulation. Ferrous sulfate supplementation. Plan for discharge [] Vitals - Labs Vital Signs - I&O Vital Signs Date Time Temp Pulse Resp B/P (MAP) Pulse Ox O2 Delivery O2 Flow Rate FiO2 01/30/23 07:35 36.9 101 18 105/67 (80) 96 Room Air 01/30/23 01:20 36.9 68 18 123/68 (86) 99 Room Air 01/29/23 21:00 36.8 73 18 123/76 (92) 98 Room Air 01/29/23 16:30 36.6 71 18 108/55 (72) 97 Room Air 01/29/23 12:30 36.5 72 18 117/64 (81) 97 Room Air 01/29/23 09:00 36.4 70 18 112/72 (85) 98 Room Air Labs Laboratory Tests 01/30/23 05:39: White Blood Count 11.7H, Red Blood Count 4.38, Hemoglobin 10.8L, Hematocrit 34L, Mean Corpuscular Volume 78L, Mean Corpuscular Hemoglobin 25, Mean Corpuscular Hemoglobin Concent 32, Red Cell Distribution Width 14.6H, Platelet Count 171, Mean Platelet Volume 11.6, Immature Granulocyte % (Auto) 1, Neutrophils (%) (Auto) 81H, Lymphocytes (%) (Auto) 9L, Monocytes (%) (Auto) 9, Eosinophils (%) (Auto) 1, Basophils (%) (Auto) 0, Neutrophils # (Auto) 9.4H, Lymphocytes # (Auto) 1.0, Monocytes # (Auto) 1.1H, Eosinophils # (Auto) 0.1, Basophils # (Auto) 0.0, Immature Granulocyte # (Auto) 0.1 NINA VASQUES DO Jan 30, 2023 08:30
[2023-01-30] MEDS: FERROUS SULF 325 MG (IRON) TAB PO SCH (09:00)
[2023-01-30] MEDS: DOCUSATE SODIUM 100 MG (COLACE) CAP PO SCH (09:00)
[2023-01-30 09:50] VITALS: BP 105/67
[2023-01-30] MEDS: PRENATAL VITAMIN 1 EA TAB PO SCH (10:00)
== END 2023-01-30 10:15 | disposition home or self-care (01) | DRG 807 ==
LOC: WSo 14:09 → LDRP 14:09 → WSo 17:24 → LDRP 17:25
PROVIDERS: ADMIT Obstetrics & Gynecology; ATTEND Obstetrics & Gynecology
PROC: 10E0XZZ Delivery of Products of Conception, External Approach (ICD-10-PCS; principal; 2023-01-28)
PROC: 0HQ9XZZ Repair Perineum Skin, External Approach (ICD-10-PCS; 2023-01-28)
PROC: 10907ZC Drainage of Amniotic Fluid, Therapeutic from Products of Conception, Via Natural or Artificial Opening (ICD-10-PCS; 2023-01-28)
DX: O70.0 First degree perineal laceration during delivery (principal); Z37.0 Single live birth; Z3A.38 38 weeks gestation of pregnancy; Z28.310 Unvaccinated for COVID-19
CPT/HCPCS: 36415; 85025; 86780; 86850; 86900; 86901; 99213